=== PATIENT | female | born 1990 | race Two or more races ===

== ENCOUNTER 2024-06-14 15:24 | Emergency (ER) | payer MEDICAID, SELFPAY ==
[2024-06-14 15:25] VITALS: BMI 38.3
[2024-06-14 15:35] VITALS: BP 125/87; PULSE 68; RESP 16; TEMP 36.6; O2SAT 98
--- NOTE | 2024-06-14 15:37 | XR_ITS ---
Examination: Abdomen sonogram, Limited Date and time of exam: June 14, 2024 1553 hrs. Indications: Upper abdominal pain with nausea vomiting beginning today Technique: Real-time casas scale transabdominal sonographic images of the upper abdomen obtained. Findings: Multiple gallstones Gallbladder wall 0.3 cm no edema Common bile duct 0.2 cm Pancreatic head 2.1 cm Liver 12.8 cm fatty infiltration Normal hepatopedal portal venous flow Patent IVC Impression: Cholelithiasis, negative for cholecystitis
--- NOTE | 2024-06-14 15:38 | PD.EDRME ---
Rapid Medical Screening Exam RME Arrival date/time: 06/14/24 15:24 33-year-old female presents to the emergency department complains of upper abdominal pain abdominal burning Chief Complaint: Abdominal Pain Vital signs: Vital Signs Temperature 97.8 F 06/14/24 15:35 Pulse Rate 68 06/14/24 15:35 Respiratory Rate 16 06/14/24 15:35 Blood Pressure 125/87 H 06/14/24 15:35 Pulse Oximetry (%) 98 06/14/24 15:35 Oxygen Delivery Method Room Air 06/14/24 15:35
[2024-06-14] MEDS: ONDANSETRON ODT 4 MG TABRAP PO (16:07)
[2024-06-14] MEDS: LIDOCAINE VISCOUS 2% 15 ML UDC PO (16:08)
[2024-06-14] MEDS: FAMOTIDINE 20 MG TABLET PO (16:08)
[2024-06-14] MEDS: MG HYD/AL HYD/SIME (Maalox Reg) SUSP 30 ML UDC PO (16:08)
[2024-06-14 16:20] LABS: Basophils # (Auto) 0.1 Thou/mm3 (0.0-0.2); Basophils % (Auto) 1 % (0-2.5); Eosinophils # (Auto) 0.2 Thou/mm3 (0.0-0.5); Eosinophils % (Auto) 1 % (0-10); Hemoglobin 13.7 g/dL (12.0-16.0); Immature Granulocytes % (Auto) 0 % (0-0); Immature Granulocytes Auto 0.02 Thou/mm3 (0.00-0.00); Lymphocytes # (Auto) 3.4 Thou/mm3 (1.0-4.8); Lymphocytes % (Auto) 30 % (10-50); Mean Corpuscular HGB Conc 33.4 g/dl (31.0-37.0); Mean Corpuscular Hemoglobin 30.1 pg (25.0-35.0); Mean Corpuscular Volume 90 fL (80-100); Monocytes # (Auto) 0.6 Thou/mm3 (0.0-0.8); Monocytes % (Auto) 5 % (0-12); Neutrophils # (Auto) 7.2 Thou/mm3 (1.8-7.7); Neutrophils % (Auto) 63 % (37-80); Nucleated Red Blood Cell % 0 /100 WBC (0); Platelet Count 263 Thou/mm3 (140-440); RDW Standard Deviation 41.9 fL (36.4-46.3); Red Blood Count 4.55 Miln/mm3 (4.00-5.20); White Blood Count 11.4 Thou/mm3 (3.6-11.0)
[2024-06-14 16:34] LABS: Alanine Aminotransferase 45 U/L (10-49); Albumin, Serum 4.3 gm/dL (3.5-5.0); Albumin/Globulin Ratio 1.5 (1.2-2.2); Alkaline Phosphatase 128 U/L (46-116); Anion Gap 8 (7-16); Aspartate Amino Transferase 108 U/L (0-34); BUN/Creatinine Ratio 16 Ratio (12-20); Bilirubin,Total 0.4 mg/dL (0.3-1.2); Blood Urea Nitrogen 13 mg/dL (9-23); Carbon Dioxide 27.9 mMol/L (20.0-31.0); Chloride 107 mMol/L (98-107); Creatinine (Component) 0.8 mg/dL (0.6-1.3); Estimated Creatinine Clearance 96.3 mL/min (>60); Globulin 2.9 gm/dL (2.3-3.5); Glucose 96 mg/dL (74-106); Lipase 40 U/L (12-53); Osmolality,Calculated 285 (275-295); Sodium 143 mMol/L (136-145); Total Protein 7.2 gm/dL (5.7-8.2); eGFR > 60 See Note
[2024-06-14 17:12] LABS: Collection Type, Urine Clean Catch
[2024-06-14 17:30] LABS: Bilirubin,Urine Negative (Negative); Blood,Urine Negative (Negative); Clarity,Urine Turbid (Clear/Hazy); Color,Urine Yellow (Lt Yel-Yel); Culture Indicated,Urine Contaminated; Glucose, Urine Negative (Negative); Ketones,Urine Negative (Negative); Leukocyte Esterase,Urine Positive (Negative); Nitrite,Urine Negative (Negative); PH,Urine 7.5 (5.0-7.0); Protein,Urine Negative (Neg - Trace); RBC,Urine 1 /hpf (0-3); Specific Gravity,Urine 1.023 (1.001-1.035); Squamous Epithelial Cell,Urine 21 /hpf (0-5); Urobilinogen,Urine Negative mg/dL (0.0-1.0); WBC,Urine 11 /hpf (0-5)
[2024-06-14 17:31] LABS: HCG Qualitative,Urine Negative
--- NOTE | 2024-06-14 18:06 | PC.NURSE ---
Called Al in ct regarding u/s result, states he will notify Dr. Ho to read
--- NOTE | 2024-06-14 18:15 | PRELIM_ITS ---
Gallbladder ultrasound. June 14, 2024 1553 hours Clinical history: Pain Comparison: None Findings: The visualized liver is increased in echogenicity without mass or ductal dilatation. The main portal vein is patent and demonstrates hepatopetal flow. Multiple calculi are noted within the gallbladder, the largest measuring 1.5 x 1.3 cm. There is no gallbladder wall thickening or pericholecystic fluid. Sonographic Coronado sign has not been mentioned in the Technologist's note. The common duct is normal in caliber at 2.3 mm. The inferior vena cava is unremarkable to the extent visualized. Impression: Cholelithiasis without evidence of acute cholecystitis. No sonographic evidence of biliary obstruction. Fatty infiltration of the liver. Report Electronically Signed By: Jaye Chavez 06/14/2024 6:14:44 PM [EST]
[2024-06-14 18:20] VITALS: BP 140/83; PULSE 61; RESP 16; TEMP 36.7; O2SAT 98
--- NOTE | 2024-06-14 18:44 | PD.EDABDPN ---
ED Abdominal Pain RME/HPI General Chief Complaint: Abdominal Pain Stated complaint: epigastric pain with NV x 1 mo. off/on, now consta Time seen by provider: 06/14/24 17:46 Arrival date/time: 06/14/24 15:24 RME / HPI RME / HPI narrative: 33-year-old female patient came in for evaluation regarding right upper quadrant pain. Onset of symptoms since early today as worsening right upper quadrant pain, described as crampy burning, severity moderate. Patient also complaining of nausea and vomiting x 2. Patient's been having on and off epigastric pain for 1 month, that goes away on its own. Today pain is worse after eating meat. No fever noted. Related Data Home Medications ?Medication ?Instructions ?Recorded ?Confirmed vitamins-iron fumarate 27 1 tab PO QDAY 01/12/19 04/27/23 mg iron-folic acid 0.8 mg tablet ( Vitamin) aspirin 81 mg chewable tablet 81 mg PO QDAY 04/27/23 04/27/23 (Aspirin Childrens) Previous Rx's ?Medication ?Instructions ?Recorded docusate sodium 100 mg capsule 100 mg PO BID #60 caps 04/29/23 (Colace) ibuprofen 800 mg tablet 800 mg PO Q6H PRN pain #120 tabs 04/29/23 lanolin 50 % topical ointment 1 applic topical TID PRN skin 04/29/23 irritation #15 tubes dicyclomine 20 mg tablet 20 mg PO TID PRN abdominal pain 06/14/24 #30 tabs pantoprazole 40 mg tablet,delayed 40 mg PO QDAY #14 tabs 06/14/24 release (Protonix) Allergies Allergy/AdvReac Type Severity Reaction Status Date / Time No Known Allergies Allergy Verified 04/27/23 06:02 Review of Systems Review of Systems Narrative Review of Systems: Review of system reviewed and within normal limits except mentioned in HPI ED Exam Narrative Physical exam: VITAL SIGNS: Reviewed. GENERAL APPEARANCE: Alert and interactive, follows commands, no acute distress, HEAD AND FACE: Non-traumatic. ENT: PERRL, pink conjunctivitis, eyelid no trauma, Mucous membrane moist. NECK: Supple, nontender, no nuchal rigidity. CHEST: No tenderness, no crepitus, no paradoxical movement, no retractions. LUNGS: Clear, well ventilated, symmetric, no rales, no wheezing, no ronchi, no stridor, good breath sounds bilaterally. HEART: Regular rate, regular rhythm, no murmur, no gallops. ABDOMEN: Soft, positive bowel sounds, nondistended, no guarding, right upper quadrant tenderness, no rebound, no masses, RECTAL: Deferred. GENITAL: Deferred. NEUROLOGICAL: Gross motor function intact sensory function intact, Appropriate for age. MUSCULOSKELETAL: low back nontender, full range of motion. EXTREMITIES: Nontender, full range of motion. SKIN: Color pink, dry, no rash, no lacerations, no abrasions, no contusions. LYMPHATICS: Deferred. Course Quality Measures none Orders Category Date Time Status US gall bladder Stat Exams 06/14/24 15:37 Taken CBC Stat Lab 06/14/24 16:06 Completed Comprehensive Metabolic Panel Stat Lab 06/14/24 16:06 Completed HCG Qualitative,Urine Stat Lab 06/14/24 17:00 Completed Lipase Stat Lab 06/14/24 16:06 Completed UA, C/S IF [Urinalysis, C/S if Indicated] Stat Lab 06/14/24 17:00 Completed Famotidine [Pepcid] Med 06/14/24 15:37 Discontinued 20 mg PO X1 ONE Ketorolac Inj [Toradol Inj] Med 06/14/24 18:38 Discontinued 30 mg IM X1 ONE Lidocaine 2% Viscous [Xylocaine 2% Viscous] Med 06/14/24 15:37 Discontinued 15 ml PO X1 ONE Ondansetron Odt [Zofran Odt] Med 06/14/24 15:38 Discontinued 4 mg PO X1 ONE mg Hyd/Al Hyd/Margarita Susp [Maalox Susp] Med 06/14/24 15:37 Discontinued 30 ml PO X1 ONE Vital Signs Vital signs: Vital Signs Temperature 97.8 F 06/14/24 15:35 Pulse Rate 68 06/14/24 15:35 Respiratory Rate 16 06/14/24 15:35 Blood Pressure 125/87 H 06/14/24 15:35 Pulse Oximetry (%) 98 06/14/24 15:35 Oxygen Delivery Method Room Air 06/14/24 15:35 Abdominal Pain MDM MDM Narrative MDM Narrative:: 33-year-old female patient came in for evaluation regarding right upper quadrant pain. Onset of symptoms since early today as worsening right upper quadrant pain, described as crampy burning, severity moderate. Patient also complaining of nausea and vomiting x 2. Patient's been having on and off epigastric pain for 1 month, that goes away on its own. Today pain is worse after eating meat. No fever noted. Laboratory workup all came back unremarkable. Patient's ultrasound showed cholelithiasis with no sign of acute cholecystitis. Patient received Toradol IM with significant improvement of symptoms. Was also given Maalox, Pepcid, and Zofran Patient was advised to follow-up with PCP and for referral to general surgeon for further management regarding gallstone clinically there is no sign of acute cholecystitis. Patient stable for discharge home Patient data External records reviewed:: None Clinical information provided by:: patient Social determinants that could affect healthcare access:: none Patient has the following chronic illnesses:: None How is presenting disease/condition affected by chronic disease/condition?: no chronic disease Evaluation data The following diagnostics were reviewed and interpreted by me:: lab results and radiology exam(s) Lab and/or radiology exams considered but not ordered:: None Interpretation Summary: See results in [facility] Medications / Prescriptions Medications or Prescriptions considered but not ordered:: None Medication administrations:: Medication Administration History Discontinued Medications Al Hydrox/Mg Hydrox/Simethicone (Mg Hyd/Al Hyd/Margarita (Maalox Reg) Susp 30 Ml Udc) 30 ml PO X1 ONE Stop: 06/14/24 15:38 Last Admin: 06/14/24 16:08 Dose: 30 ml Documented By: Famotidine (Famotidine 20 Mg Tablet) 20 mg PO X1 ONE Stop: 06/14/24 15:38 Last Admin: 06/14/24 16:08 Dose: 20 mg Documented By: Ketorolac Tromethamine (Ketorolac Inj 60 Mg/2 Ml Vial) 30 mg IM X1 ONE Stop: 06/14/24 18:39 Lidocaine HCl (Lidocaine Viscous 2% 15 Ml Udc) 15 ml PO X1 ONE Stop: 06/14/24 15:38 Last Admin: 06/14/24 16:08 Dose: 15 ml Documented By: Ondansetron HCl (Ondansetron Odt 4 Mg Tabrap) 4 mg PO X1 ONE; Protocol Stop: 06/14/24 15:39 Last Admin: 06/14/24 16:07 Dose: 4 mg Documented By: Toradol, Pepcid, and Maalox Consultations Consultation(s) initiated? (list below): No Diagnosis Differential diagnosis abdominal pain: abdominal pain, pancreatitis and other (Gallstone) Most likely diagnosis given after review of the tests above:: Gallstone Admission Indicated Admission indicated?: not indicated Admission Request Was there a request for admission?: No Disposition Plan Disposition Plan: Discharge Discharge Attestation Discharge Attestation: The patien was given an opportunity to ask questions and understood the discharge instructions. Discharge instructions specifically effects, indications for sooner follow up or return to the emergency department, and the expected course of current diagnosis. Patient condition: Stable Discharge Plan Plan Patient Disposition: HOME (Self Care) Disposition Comment: Stable Prescriptions/Referrals Prescriptions/Med Rec: New dicyclomine 20 mg tablet 20 mg PO TID PRN (Reason: abdominal pain) Qty: 30 0RF pantoprazole [Protonix] 40 mg tablet,delayed release (DR/EC) 40 mg PO QDAY Qty: 14 0RF No Action Vitamin 27 mg iron- 0.8 mg Tablet 1 tab PO QDAY aspirin [Aspirin Childrens] 81 mg Tablet,Chewable 81 mg PO QDAY ibuprofen 800 mg tablet 800 mg PO Q6H MDD 4 PRN (Reason: pain) Qty: 120 0RF docusate sodium [Colace] 100 mg capsule 100 mg PO BID Qty: 60 0RF lanolin 50 % ointment 1 applic topical TID PRN (Reason: skin irritation) Qty: 15 0RF Referrals: No Primary/Family,Physician [Primary Care Provider] - In 1 week Problem List Clinical Impression: Gallstone Patient/Caregiver Discharge Instructions Discharge Activity: activity as tolerated Education Materials: What Are Gallstones Additional Instructions: Thank you for the opportunity for serving you today. You are stable for discharged . You are advised to: Follow-up with your PCP in 1 to 2 days and ask your PCP to refer you to a surgeon regarding your gallstone Return to ED for worsening of symptoms Increase oral fluids Take medication as prescribed Please avoid eating fried, greasy, fried foods. Please avoid drinking milk Print Language: Bulgarian Stand Alone Forms: Neisha Award Info., Patient Portal Info Letter JAYDA/LEIDA Supervising Physician JAYDA/LEIDA Supervising Physician: MD Ansley
[2024-06-14] MEDS: KETOROLAC INJ 60 MG/2 ML VIAL 30 MG IM (19:07)
[2024-06-14 19:41] VITALS: RESP 18
== END 2024-06-14 19:41 | disposition home or self-care (01) ==
PROVIDERS: Nurse Practitioner Primary Care; Emergency Provider Emergency Medicine
DX: K80.20 Calculus of gallbladder without cholecystitis without obstruction (principal)
CPT/HCPCS: 36415; 76705; 80053; 81001; 81025; 83690; 85025; 96372; 99284; J1885; J3490; Q0162; A9270

== ENCOUNTER 2024-07-01 08:00 | Day surgery (SDC) | payer OTHER, SELFPAY ==
[2024-06-26 08:38] VITALS: BMI 39.9
[2024-06-26 09:53] LABS: Basophils % (Auto) 1 % (0-2.5); Eosinophils # (Auto) 0.1 Thou/mm3 (0.0-0.5); Eosinophils % (Auto) 1 % (0-10); Hematocrit 40.5 % (36.0-46.0); Hemoglobin 13.6 g/dL (12.0-16.0); Immature Granulocytes % (Auto) 0 % (0-0); Immature Granulocytes Auto 0.03 Thou/mm3 (0.00-0.00); Lymphocytes # (Auto) 2.9 Thou/mm3 (1.0-4.8); Lymphocytes % (Auto) 36 % (10-50); Mean Corpuscular HGB Conc 33.6 g/dl (31.0-37.0); Mean Corpuscular Hemoglobin 29.8 pg (25.0-35.0); Mean Corpuscular Volume 89 fL (80-100); Monocytes # (Auto) 0.5 Thou/mm3 (0.0-0.8); Monocytes % (Auto) 7 % (0-12); Neutrophils # (Auto) 4.4 Thou/mm3 (1.8-7.7); Neutrophils % (Auto) 55 % (37-80); Nucleated Red Blood Cell % 0 /100 WBC (0); Platelet Count 259 Thou/mm3 (140-440); RDW Standard Deviation 40.3 fL (36.4-46.3); Red Blood Count 4.57 Miln/mm3 (4.00-5.20)
[2024-06-26 10:05] LABS: HCG,Qualitative Serum Negative
[2024-06-26 10:12] LABS: Alanine Aminotransferase 18 U/L (10-49); Albumin, Serum 4.4 gm/dL (3.5-5.0); Albumin/Globulin Ratio 1.6 (1.2-2.2); Alkaline Phosphatase 90 U/L (46-116); Anion Gap 9 (7-16); Aspartate Amino Transferase 19 U/L (0-34); BUN/Creatinine Ratio 17 Ratio (12-20); Bilirubin,Total 0.4 mg/dL (0.3-1.2); Blood Urea Nitrogen 12 mg/dL (9-23); Calcium 9.3 mg/dL (8.3-10.6); Calcium (Corrected) 9.3 mg/dL (8.5-10.1); Carbon Dioxide 26.3 mMol/L (20.0-31.0); Chloride 106 mMol/L (98-107); Creatinine (Component) 0.7 mg/dL (0.6-1.3); Estimated Creatinine Clearance 103.2 mL/min (>60); Globulin 2.8 gm/dL (2.3-3.5); Glucose 72 mg/dL (74-106); Osmolality,Calculated 279 (275-295); Sodium 141 mMol/L (136-145); Total Protein 7.2 gm/dL (5.7-8.2); eGFR > 60 See Note
[2024-07-01] VITALS (7 sets, daily range): BP systolic 99–111; BP diastolic 45–63; PULSE 53–76; RESP 16–20; TEMP 36.6–37; O2SAT 96–100; BMI 41.8
--- NOTE | 2024-07-01 10:17 | SUR.PHASEI ---
1017 Patient arrived to recovery on oxygen 8L via oxy mask, oral airway removed upon arrival, patient drowsy, able to follow verbal commands, breathing unlabored, vital signs stable, denies pain, dressing intact to abdomen; dermabond, no bleeding noted, lung sounds clear upon auscultation, bilateral radial pulses present when palpated, report received from Noah LYNN and Caitlyn LAWSON and Danya LAWSON
--- NOTE | 2024-07-01 10:18 | ESOP_ITS ---
Date of Procedure 07/01/24 Pre Op Diagnosis Symptomatic cholelithiasis Post Op Diagnosis Cholelithiasis with cholecystitis Procedure Laparoscopic cholecystectomy Findings Moderately distended gallbladder with gallstones and chronic cholecystitis Procedure Description Patient was brought into the operating room in supine position. After adm inistration of general endotracheal anesthesia abdomen was prepped and draped in standard surgical manner. A Veress needle was inserted through the umbilicus and pneumoperitoneum was obtained up to 15 mmHg. The Veress needle was then removed, a 5 mm infraumbilical incision was made and the 5mm trocar was inserted. Laparoscopic camera was placed. Under direct visualization a laparoscopic camera a 10 mm trocar was placed in subxiphoid and two 5 mm trocars placed in right upper quadrant. The gallbladder was identified and was noted to be moderately distended with gallstones and chronic cholecystitis. It was retracted cephalad and laterally. Dissection started near the infundibulum of gallbladder where cystic duct and gallbladder junction clearly identified. The cystic duct was circumferentially dissected off the peritoneum and surrounding inflammatory tissue. The critical view of safety was clearly demonstrated. Cystic duct was then divided between 2 endoclips proximally and one distally. The cystic artery was similarly dissected and divided, patient was noted to have anterior and posterior branches of cystic artery that were individually dissected and ligated. The gallbladder was then from the liver bed using electrocautery. The gallbladder was then placed inside an Endo Catch and removed from the abdomen utilizing subxiphoid trocar site. The area was copi ously and thoroughly washed and irrigated, all the fluid was suctioned and the suction fluid returned clear. Hemostasis achieved using electrocautery. Endoclips noted be in place and intact without any bleeding or any leakage. Hemostasis was adequate and satisfactory. The subxiphoid trocar sites fascial defect was closed with 0 Vicryl using Endo Closure device. Instruments and trocars removed, pneumoperitoneum was evacuated and the incisions closed with 4- 0 Monocryl in subcuticular fashion. Instrument needle and sponge counts were all reported to be correct X2. Patient tolerated the procedure well, was extubated, breathing spontaneously and without difficulty and was transferred to postanesthesia care in stable condition. Anesthesia GETA and local Pathology / specimen Other (Gallbladder and contents) Estimated Blood Loss 25 Condition Stable Disposition PACU Surgeon Jj Topete MD Surgical Staff Operation Date: 07/01/24 10:00 Case Staff PAPER FOLDING MACHINE OPERATOR: Noah Suarez RNgroup program manager: Ailyn Alba
--- NOTE | 2024-07-01 11:14 | SUR.PHASEII ---
1114 Patient meets discharge criteria from recovery, awake and alert, breathing unlabored, vital signs stable, denies pain-states, It's just sore, dressing intact; no bleeding noted, patient drinking 7up; tolerating well, denies nausea, patient assisted with dressing into her clothing by her , discharge instructions given to patient and patients with teach-back approach, both receptive, patient signed discharge instructions. Patient given all her belongings prior to discharge, transported via wheelchair and left in a private vehicle.
== END 2024-07-01 11:14 | disposition home or self-care (01) ==
PROVIDERS: PCP Physician Assistant; Referring Provider Surgery; Visit Provider Surgery
PROC: 0FT44ZZ Resection of Gallbladder, Percutaneous Endoscopic Approach (ICD-10-PCS; CPT 47562; principal; 2024-07-01 09:45)
DX: K80.10 Calculus of gallbladder with chronic cholecystitis without obstruction (principal)
CPT/HCPCS: 47562; 36415; 80053; 84703; 85025; A4217; A4649; J0131; J0694; J2371; J2704; J3010; J3490